=== PATIENT | male | born 1940 | race Caucasian/White ===

== ENCOUNTER → 2021-01-17 07:26 | Outpatient (CLI) | payer MEDICARE, OTHER, SELFPAY ==
[2021-01-17 08:43] LABS: Alanine Aminotransferase 24 IU/L (<50); Albumin 3.7 g/dL (3.5-5.0); Albumin Globulin Ratio 1.3 (1.0-2.8); Alkaline Phosphatase 59 U/L (38-126); Aspartate Aminotransferase 27 IU/L (17-59); BUN Creatinine Ratio 12.8 (6-22); Bilirubin Total 0.6 mg/dL (0.2-1.3); Blood Urea Nitrogen 18 mg/dL (9-20); Calcium 9.5 mg/dL (8.4-10.2); Carbon Dioxide 25 mmol/L (22-32); Chloride 108 mmol/L (98-107); Cholesterol 121 mg/dL (140-199); Estimated Glomerular Filt Rate 48.5 mL/min (>60); Globulin 2.8 g/dL (1.7-4.1); Glucose 126 mg/dL (80-110); HDL Cholesterol 33 mg/dL (40-60); HEMOLYSIS 17 (0-50); LDL Cholesterol Calculated 10 mg/dL (<100); Potassium 4.5 mmol/L (3.4-5.1); Sodium 139 mmol/L (137-145); Total Protein 6.5 g/dL (6.3-8.2); Triglycerides 390 mg/dL (35-150)
[2021-01-17 10:08] LABS: Creatinine Urine Random 75.4 mg/dL
[2021-01-17 10:28] LABS: Microalbumin Urine Random 4.6 mg/dL (0-1.6)
[2021-01-17 17:09] LABS: Lactate Dehydrogenase 513 U/L (313-618)
== END ==
PROVIDERS: Referring Provider Family Medicine; Visit Provider Family Medicine
DX: E11.9 Type 2 diabetes mellitus without complications (principal); E78.5 Hyperlipidemia, unspecified
CPT/HCPCS: 36415; 80053; 80061; 82043; 82570; 83036; 83615

== ENCOUNTER → 2023-01-05 06:59 | Outpatient (CLI) | payer MEDICARE, OTHER, SELFPAY ==
[2023-01-05 08:14] LABS: Alanine Aminotransferase 22 IU/L (<50); Albumin 3.5 g/dL (3.5-5.0); Albumin Globulin Ratio 1.4 (1.0-2.8); Alkaline Phosphatase 39 U/L (38-126); Aspartate Aminotransferase 27 IU/L (17-59); BUN Creatinine Ratio 14.6 (6-22); Bilirubin Total 0.5 mg/dL (0.2-1.3); Blood Urea Nitrogen 26 mg/dL (9-20); Calcium 9.6 mg/dL (8.4-10.2); Carbon Dioxide 25 mmol/L (22-32); Chloride 109 mmol/L (98-107); Cholesterol 156 mg/dL (140-199); Estimated Glomerular Filt Rate 38 mL/min (>60); Globulin 2.5 g/dL (1.7-4.1); Glucose 69 mg/dL (80-110); HDL Cholesterol 36 mg/dL (40-60); HEMOLYSIS < 15 (0-50); LDL Cholesterol Calculated 74 mg/dL (<100); Potassium 4.3 mmol/L (3.4-5.1); Sodium 140 mmol/L (137-145); Triglycerides 229 mg/dL (35-150)
[2023-01-05 08:25] LABS: LDL Cholesterol Direct 86 mg/dL (<100)
[2023-01-05 09:20] LABS: Creatinine Urine Random 125.1 mg/dL
[2023-01-05 09:25] LABS: Microalbumi Creatinin Ratio Ur 26.3 ug/mg CR (<30); Microalbumin Urine Random 3.3 mg/dL (0-1.6)
[2023-01-06 07:02] LABS: x Labcorp Estim. Avg Glu (eAG) 137 mg/dL (.); x Labcorp Hemoglobin A1c 6.4 % (4.8-5.6)
== END ==
PROVIDERS: Referring Provider Family Medicine; Visit Provider Family Medicine
DX: E11.40 Type 2 diabetes mellitus with diabetic neuropathy, unspecified (principal); E78.5 Hyperlipidemia, unspecified
CPT/HCPCS: 36415; 80053; 80061; 82043; 82570; 83036; 83721

== ENCOUNTER → 2024-01-18 06:33 | Outpatient (CLI) | payer MEDICARE, OTHER, SELFPAY ==
[2024-01-18 08:27] LABS: Alanine Aminotransferase 19 IU/L (<50); Albumin 3.5 g/dL (3.5-5.0); Albumin Globulin Ratio 1.3 (1.0-2.8); Alkaline Phosphatase 50 U/L (38-126); Aspartate Aminotransferase 23 IU/L (17-59); BUN Creatinine Ratio 11.8 (6-22); Bilirubin Total 0.4 mg/dL (0.2-1.3); Blood Urea Nitrogen 28 mg/dL (9-20); Calcium 9.4 mg/dL (8.4-10.2); Carbon Dioxide 23 mmol/L (22-32); Chloride 109 mmol/L (98-107); Cholesterol 159 mg/dL (140-199); Estimated Glomerular Filt Rate 27 mL/min (>60); Globulin 2.7 g/dL (1.7-4.1); Glucose 124 mg/dL (80-110); HDL Cholesterol 34 mg/dL (40-60); HEMOLYSIS < 15 (0-50); LDL Cholesterol Calculated 80 mg/dL (<100); Potassium 4.7 mmol/L (3.4-5.1); Sodium 139 mmol/L (137-145); Total Protein 6.2 g/dL (6.3-8.2); Triglycerides 227 mg/dL (35-150)
[2024-01-18 08:29] LABS: Hemoglobin A1C% w Est Avg Glu 6.9 % (4.0-6.0)
[2024-01-18 08:39] LABS: LDL Cholesterol Direct 94 mg/dL (<100)
[2024-01-18 09:42] LABS: Creatinine Urine Random 116.94 mg/dL
[2024-01-18 09:47] LABS: Microalbumin Urine Random 4.3 mg/dL (0-1.6)
== END ==
PROVIDERS: Referring Provider Family Medicine; Visit Provider Family Medicine
DX: E11.9 Type 2 diabetes mellitus without complications (principal); E78.5 Hyperlipidemia, unspecified
CPT/HCPCS: 36415; 80053; 80061; 82043; 82570; 83036; 83721

== ENCOUNTER → 2024-11-29 06:38 | Outpatient (CLI) | payer MEDICARE, OTHER, SELFPAY ==
[2024-11-29 07:44] LABS: Hemoglobin A1C% w Est Avg Glu 6.4 % (4.0-6.0)
[2024-11-29 08:00] LABS: Alanine Aminotransferase 18 IU/L (<50); Albumin 3.6 g/dL (3.5-5.0); Albumin Globulin Ratio 1.5 (1.0-2.8); Alkaline Phosphatase 47 U/L (38-126); Aspartate Aminotransferase 22 IU/L (17-59); BUN Creatinine Ratio 13.5 (6-22); Bilirubin Total 0.5 mg/dL (0.2-1.3); Blood Urea Nitrogen 30 mg/dL (9-20); Calcium 9.3 mg/dL (8.4-10.2); Carbon Dioxide 24 mmol/L (22-32); Chloride 109 mmol/L (98-107); Cholesterol 183 mg/dL (140-199); Estimated Glomerular Filt Rate 29 mL/min (>60); Globulin 2.4 g/dL (1.7-4.1); Glucose 124 mg/dL (70-99); HDL Cholesterol 33 mg/dL (40-60); HEMOLYSIS < 15 (0-50); LDL Cholesterol Calculated 106 mg/dL (<100); Potassium 4.4 mmol/L (3.4-5.1); Sodium 140 mmol/L (137-145); Triglycerides 219 mg/dL (35-150)
[2024-11-29 08:10] LABS: LDL Cholesterol Direct 102 mg/dL (<100)
[2024-11-29 08:13] LABS: Creatinine Urine Random 127.87 mg/dL
[2024-11-29 08:19] LABS: Microalbumin Urine Random 6.1 mg/dL (0-1.6)
== END ==
PROVIDERS: PCP Family Medicine; Referring Provider Family Medicine; Visit Provider Family Medicine
DX: E11.65 Type 2 diabetes mellitus with hyperglycemia (principal); E78.5 Hyperlipidemia, unspecified
CPT/HCPCS: 36415; 80053; 80061; 82043; 82570; 83036; 83721